=== PATIENT | male | born 1980 | race African-American/Black ===

== ENCOUNTER 2024-06-18 05:29 | Emergency (ER) | payer MEDICARE ==
[~2024-06-18] VITALS: Ht 182.9 cm; Wt 63.4 kg
[~2024-06-18 05:29] MED LIST: DOXY100T28 PO
[2024-06-18 05:55] VITALS: O2SAT 94
[2024-06-18] MEDS: ALBUTEROL (0.083%) 2.5MG/3ML NEB HHN STA (06:42)
[2024-06-18] MEDS: IPRATROPIUM BROMIDE (0.02%) 0.5MG/2.5ML NEB HHN STA (06:42)
[2024-06-18 06:50] VITALS: PULSE 92; RESP 18
[2024-06-18] MEDS: PREDNISONE 20MG TABLET PO STA (07:03)
[2024-06-18] MEDS ORDERED: P20 MT (09:10)
[2024-06-18] MEDS ORDERED: ALBU18HF2 IH (09:10)
[2024-06-18 09:43] VITALS: BP 130/62; PULSE 98; RESP 20; TEMP 36.55848; O2SAT 98
== END 2024-06-19 09:44 | disposition home or self-care (01) ==
LOC: ER 05:29
DX: J45.901 Unspecified asthma with (acute) exacerbation (principal); Z98.890 Other specified postprocedural states
CPT/HCPCS: 99283; 94640; J7512